=== PATIENT | male | born 1970 | race Caucasian/White ===

== ENCOUNTER 2024-10-13 07:17 | Outpatient (CLI) | payer BC, SELFPAY ==
--- NOTE | 2024-10-13 07:15 | CRLHL7_ITS ---
For Patients: As a result of the Century Cures Act, medical imaging exams and procedure reports are released immediately into your electronic medical record. You may view this report before your referring provider. If you have questions, please contact your health care provider. INDICATION: Benign essential hypertension TECHNIQUE: Grayscale, color Doppler and power Doppler evaluation of the kidneys and renal arteries performed. COMPARISON: None available FINDINGS: BILATERAL RENAL ARTERY DUPLEX ULTRASOUND ABDOMINAL AORTA: Peak systolic velocity = 75 cm/s. No aortic aneurysm. RIGHT KIDNEY: 11.1 cm in length. There is no hydronephrosis. Peak systolic velocity = 83 cm/second Renal artery to aortic peak systolic velocity ratio = 1.1 Resistive indices: 0.6 Renal vein = patent LEFT KIDNEY: 10.7 cm in length. There is no hydronephrosis. Peak systolic velocity = 127 cm/second Renal artery to aortic peak systolic velocity ratio = 1.7 Resistive indices: 0.5 Renal vein = patent Simple cyst left kidney measures 2.7 x 2.4 x 2.3 cm. IMPRESSION: No evidence of significant renal artery stenosis. Dictated by Al Danielle MD @ 10/13/2024 1:18:52 PM (Electronically Signed)
== END 2024-10-13 07:18 | disposition home or self-care (01) ==
PROVIDERS: PCP Family Medicine; Visit Provider Family Medicine
DX: I10 Essential (primary) hypertension (principal)
CPT/HCPCS: 76775; 93975